=== PATIENT | male | born 1955 | race Caucasian/White ===

== ENCOUNTER 2022-04-02 08:58 | Inpatient (IN) ==
[2022-04-02 09:31] LABS: Basophils % 0.9 %; Eosinophils # 0.3 K/mcL (0.0-0.6); Eosinophils % 6.4 %; Hematocrit 44.6 % (37.5-50.1); Hemoglobin 14.6 g/dL (12.9-16.9); Immature Granulocytes % 0.5 % (0-4); Lymphocytes # 1.8 K/mcL (0.6-4.6); Mean Corpuscular HGB Conc 32.7 g/dL (31.6-35.5); Mean Corpuscular Hemoglobin 31.1 pg (28.0-33.3); Mean Corpuscular Volume 94.9 fL (83.0-100.0); Mean Platelet Volume 9.3 fL (9.4-12.4); Monocytes # 0.4 K/mcL (0.0-1.3); Monocytes % 9.8 %; Neutrophils # 1.8 K/mcL (1.6-8.9); Platelet Count 166 K/mcL (140-400); Red Cell Distribution Width 12.6 % (11.5-14.5); Segmented Neutrophils % 41.4 %; White Blood Count 4.4 K/mcL (4.3-11.1)
[2022-04-02 09:51] LABS: BUN/Creatinine Ratio 17 (6-26); Blood Urea Nitrogen 17 mg/dL (8-23); Calcium 9.5 mg/dL (8.6-10.3); Carbon Dioxide 30 mEq/L (23-29); Chloride 101 mEq/L (98-107); Glucose 116 mg/dL (70-105); Osmolality,Calculated 293 (280-300); Potassium 3.9 mEq/L (3.5-5.1); Sodium 140 mEq/L (136-145); eGFR For African Americans > 60 (> 60); eGFR For Non-African Americans > 60 (> 60)
[2022-04-02 10:24] LABS: Troponin I 0.48 ng/mL (< 0.04)
[2022-04-02] MEDS ORDERED: *HR* Heparin 5,000 UNIT/ML VIAL IVP ONE (10:32)
[2022-04-02] MEDS ORDERED: *HR* Heparin 5,000 UNIT/ML VIAL IVP PRN (10:32)
[2022-04-02] MEDS ORDERED: Naloxone 0.4 MG/ML INJ IVP PRN (10:46)
[2022-04-02] MEDS ORDERED: Perflutren Lipid Microsphere 1.3 ML in 0.9 % Sodium Chloride 8.7 ML IVP PRN (10:48)
[2022-04-02] MEDS ORDERED: Aspirin 81 MG TAB.CHEW PO ONE (11:02)
[2022-04-02] MEDS: Heparin 25,000UNIT/250ML 1/2NS 25,000 UNIT/250 ML IV.SOLN IVC SCH (12:52)
[2022-04-02] MEDS ORDERED: *HR* FentaNYL (PF) 100 MCG/2 ML VIAL ONE (13:45)
[2022-04-02] MEDS ORDERED: *HR* Midazolam HCl 2 MG/2 ML VIAL ONE (13:45)
[2022-04-02] MEDS ORDERED: Iopamidol - 370 200 ML INFUS..BTL ONE (13:46)
[2022-04-02] MEDS ORDERED: Nitroglycerin 1,000 MCG/5 ML VIAL IV ONE (13:46)
[2022-04-02] MEDS ORDERED: Heparin 1,000 UNITS/500 mL 500 ML ONE (13:46)
[2022-04-02] MEDS ORDERED: *HR* Heparin 10,000 UNIT/10 ML VIAL ONE (13:46)
[2022-04-02] MEDS ORDERED: 0.9 % Sodium Chloride 1,000 ML ONE ×2 (13:46→13:47)
[2022-04-02 14:16] LABS: Hematocrit 44.7 % (37.5-50.1); Hemoglobin 14.3 g/dL (12.9-16.9); Mean Corpuscular Hemoglobin 30.9 pg (28.0-33.3); Mean Corpuscular Volume 96.5 fL (83.0-100.0); Mean Platelet Volume 9.7 fL (9.4-12.4); Platelet Count 165 K/mcL (140-400); Red Blood Count 4.63 M/mcL (4.19-5.50); Red Cell Distribution Width 12.9 % (11.5-14.5); White Blood Count 5.2 K/mcL (4.3-11.1)
[2022-04-02 14:23] LABS: INR 1.4; Prothrombin Time 15.4 Seconds (9.4-12.1)
[2022-04-02 14:26] LABS: Activated Partial Thrombo Time 39.5 Seconds (26.0-36.0)
[2022-04-02 14:32] LABS: Heparin anti-factor XA UFH 1.3 IU/mL (0.30-0.70)
[2022-04-02 14:36] LABS: Chol/HDL Ratio 4.8 (0-4.9)
[2022-04-02 14:44] LABS: Troponin I 1.26 ng/mL (< 0.04)
[2022-04-02] MEDS ORDERED: Heparin 25,000 UNIT/250 ML 25,000 UNIT/250 ML IV.SOLN ONE (15:24)
[2022-04-02 15:29] LABS: Estimated Average Glucose 117 mg/dl; Hemoglobin A1C 5.7 %
[2022-04-02] MEDS ORDERED: HEPARIN ONE (15:30)
[2022-04-02] MEDS: Nicotine 14 MG PATCH.TD24 TD SCH (18:18)
[2022-04-03] MEDS: *HR* Heparin 5,000 UNIT/ML VIAL IVP PRN ×2 (04:12→21:13)
[2022-04-03] MEDS: Nicotine 14 MG PATCH.TD24 TD SCH (09:46)
[2022-04-03] MEDS: Aspirin 81 MG TAB.CHEW PO SCH (09:46)
[2022-04-03] MEDS: Heparin 25,000UNIT/250ML 1/2NS 25,000 UNIT/250 ML IV.SOLN IVC SCH (15:20)
[2022-04-04 03:24] LABS: Basophils % 0.7 %; Eosinophils # 0.3 K/mcL (0.0-0.6); Eosinophils % 5.5 %; Hematocrit 43.1 % (37.5-50.1); Hemoglobin 14.4 g/dL (12.9-16.9); Immature Granulocytes % 0.5 % (0-4); Lymphocytes # 2.3 K/mcL (0.6-4.6); Lymphocytes % 39.7 %; Mean Corpuscular HGB Conc 33.4 g/dL (31.6-35.5); Mean Corpuscular Hemoglobin 31.4 pg (28.0-33.3); Mean Corpuscular Volume 94.1 fL (83.0-100.0); Mean Platelet Volume 9.4 fL (9.4-12.4); Monocytes # 0.5 K/mcL (0.0-1.3); Monocytes % 8.5 %; Neutrophils # 2.7 K/mcL (1.6-8.9); Platelet Count 154 K/mcL (140-400); Red Blood Count 4.58 M/mcL (4.19-5.50); Red Cell Distribution Width 12.7 % (11.5-14.5); Segmented Neutrophils % 45.1 %; White Blood Count 5.9 K/mcL (4.3-11.1)
[2022-04-04 03:41] LABS: BUN/Creatinine Ratio 15 (6-26); Blood Urea Nitrogen 15 mg/dL (8-23); Calcium 9.3 mg/dL (8.6-10.3); Carbon Dioxide 25 mEq/L (23-29); Chloride 105 mEq/L (98-107); Glucose 106 mg/dL (70-105); Osmolality,Calculated 287 (280-300); Potassium 3.7 mEq/L (3.5-5.1); Sodium 138 mEq/L (136-145); eGFR For African Americans > 60 (> 60); eGFR For Non-African Americans > 60 (> 60)
[2022-04-04] MEDS: *HR* Heparin 5,000 UNIT/ML VIAL IVP PRN ×2 (04:44→12:12)
[2022-04-04 05:12] VITALS: O2SAT 97
[2022-04-04] MEDS: Aspirin 81 MG TAB.CHEW PO SCH (07:59)
[2022-04-04] MEDS: Nicotine 14 MG PATCH.TD24 TD SCH (08:25)
[2022-04-04] MEDS ORDERED: Mag Hydrox/Al Hydrox/Simeth 30 ML UDC PO PRN (09:20)
[2022-04-04] MEDS: Heparin 25,000UNIT/250ML 1/2NS 25,000 UNIT/250 ML IV.SOLN IVC SCH (09:58)
[2022-04-04 15:51] VITALS: PULSE 61; TEMP 98.2
[2022-04-04 16:43] VITALS: BP 168/84
== END 2022-04-04 18:30 | disposition short-term general hospital (02) | DRG 281 ==
LOC: EMEROOARM 08:58 → 2NENU 08:58 → SUATTDRO 11:09 → 2NENU 13:10
PROVIDERS: ADMIT Internal Medicine; ATTEND Internal Medicine